=== PATIENT | male | born 1940 | race Caucasian/White ===

== ENCOUNTER 2017-01-02 10:04 | Emergency (ER) | payer MEDICARE, OTHER ==
[~2017-01-02] VITALS: Ht 185.4 cm; Wt 95.0 kg
[~2017-01-02 10:04] MED LIST: ALLO300T2 PO; ASPI1TAB69 PO; COLA100C3 PO; DEPA500T PO; DIVA500T PO; LANTUS2P SQ; LISI40TA PO; MIRT30TA PO; QUET5TAB PO; SERO100T PO
[2017-01-02 10:08] VITALS: BP 144/83; PULSE 104; RESP 20; TEMP 98; O2SAT 94
--- NOTE | 2017-01-02 11:09 | PD ---
HPI Chief Complaint: Skin Problem Time Seen by Provider: 11:01 Travel History International Travel<30 days: No Contact w/Intl Traveler<30days: No Traveled to known affect area: No History of Present Illness HPI Patient is a 76-year-old male presenting to the emergency for evaluation and treatment of scabies. Patient states he went to his stencil maker at [facility] 1 week ago and was given permethrin cream. He states that he cannot reach his back and continues to be itchy. He states that he continues to be itchy. He also reports that has spread to his scrotum and groin. He denies any fevers, drainage. PFSH Past Medical History Arthritis: Yes Asthma: No Autoimmune Disease: No Bipolar Disorder: Yes Anxiety: Yes Depression: Yes Heart Rhythm Problems: No Cancer: No Cardiovascular Problems: No High Cholesterol: Yes Chemotherapy: No Chest Pain: No Congestive Heart Failure: No COPD: No Cerebrovascular Accident: No Diabetes: Yes Diminished Hearing: Yes (HX OF TINITIS) Diverticulitis: Yes Endocrine: Yes Gout: Yes Genitourinary: Yes Headaches: No Hiatal Hernia: No Hypertension: Yes Immune Disorder: No Kidney Stones: Yes Neurologic: Yes (HX OF NEUROPATHY OF LEGS, PT STATES " I USE CANE AT HOME") Psychiatric: Yes (Sees Psychiatrist Dr. Martínez) Respiratory: No Immunizations Current: Yes Migraines: No Pneumonia: Yes (PAST HX X 2) Radiation Therapy: No Seizures: No Sickle Cell Disease: No Sleep Apnea: No Thyroid Disease: No Ulcer: No Past Surgical History Abdominal Surgery: Yes (HX OF BOWEL RESECTION RELATED TO DIVERTICULITIS) AICD: No Appendectomy: Yes Arteriovenous Shunt: No Cardiac Surgery: No Ear Surgery: No Endocrine Surgery: No Eye Surgery: No Gynecologic Surgery: No Insulin Pump: No Neurologic Surgery: No Pacemaker: No Thoracic Surgery: No Tonsillectomy: Yes Other Surgery: Yes Social History Alcohol Use: No Tobacco Use: No Substance Use: Yes (hx marijuana) Allergies-Medications (Allergen,Severity, Reaction): Coded Allergies: Oxycodone (Verified Allergy, Severe, Nausea/Vomiting, 01/02/17) Codeine (Verified Allergy, Unknown, 01/02/17) Reported Meds & Prescriptions Reported Meds & Active Scripts Active Depakote DR (Divalproex Sodium) 500 Mg Tabdr 1,000 Mg PO BID 14 Days Quetiapine (Quetiapine Fumarate) 50 Mg Tab 50 Mg PO HS 14 Days Mirtazapine 30 Mg Tab 30 Mg PO HS 14 Days Reported Lisinopril 40 Mg Tab Unknown Dose PO DAILY Lantus Inj (Insulin Glargine) 1,000 Unit/10 Ml Vial Units SQ DAILY sliding scale Colace (Docusate Sodium) 100 Mg Cap 100 Mg PO BID PRN Divalproex DR (Divalproex Sodium) 500 Mg Tabdr 1,000 Mg PO BID Aspirin 81 Mg Tabdr 81 Mg PO DAILY Allopurinol 300 Mg Tab 300 Mg PO HS PRN Seroquel (Quetiapine Fumarate) 100 Mg Tab 100 Mg PO HS Mirtazapine 30 Mg Tab 30 Mg PO HS Review of Systems Except as stated in HPI: all other systems reviewed are Neg General / Constitutional: No: Fever, Chills Skin: Positive Rash, Positive Itching, Positive Lesions Physical Exam Narrative GENERAL: Well-nourished, well-developed patient. SKIN: Warm and dry. Scattered macular lesions, some with excoriations. Lesions are on abdomen, chest wall, back, arms, groin. Surrounding induration or erythema. HEAD: Normocephalic. EYES: No scleral icterus. No injection or drainage. NECK: Supple, trachea midline. No JVD or lymphadenopathy. CARDIOVASCULAR: Regular rate and rhythm without murmurs, gallops, or rubs. RESPIRATORY: Breath sounds equal bilaterally. No accessory muscle use. GASTROINTESTINAL: Abdomen soft, non-tender, nondistended. MUSCULOSKELETAL: No cyanosis, or edema. BACK: Nontender without obvious deformity. No CVA tenderness. Data Data Last Documented VS Vital Signs Date Time Temp Pulse Resp B/P Pulse Ox O2 Delivery O2 Flow Rate FiO2 01/02/17 10:08 98.0 104 20 144/83 94 Room Air [facility] Medical Decision Making Medical Screen Exam Complete: Yes Emergency Medical Condition: Yes Interpretation(s) Vital Signs Date Time Temp Pulse Resp B/P Pulse Ox O2 Delivery O2 Flow Rate FiO2 01/02/17 10:08 98.0 104 20 144/83 94 Room Air Differential Diagnosis Folliculitis versus dermatitis versus scabies versus eczema versus other Narrative Course Patient is a 76-year-old male presenting to emergency for evaluation of scabies. Patient was diagnosed a week ago by his stencil maker, he states he was unable to effectively treat himself due to being unable to reach his back. Patient did not call his stencil maker, he stated that he thought they were closed because of the holiday. Patient has significant disease, he will be given a prescription for ivermectin for 2 days. Additional treatment will be provided by his charter coach driver if needed upon reevaluation. Patient is encouraged to schedule a follow-up appointment with his stencil maker for further evaluation and management. Patient has topical cream at home which she states has helped some of the itching. He was encouraged to continue using this as directed. Patient was advised to come back to the emergency department for any new or worsening symptoms. Patient is stable for discharge. Diagnosis Primary Impression: Crusted scabies Referrals: [employer] 2 days Patient Instructions: General Instructions, Scabies (ED) Additional Instructions: Follow-up with your stencil maker in one to 2 days Take medications as directed Continue to use topical cream for itching as directed Return to the emergency department for any new or worsening symptoms Med/Other Pt SpecificInfo: Prescription(s) given Scripts Ivermectin 3 Mg Tab6 Tab PO DAILY #2 Ref 0 Prov:Eusebia Jenkins 01/02/17 Eusebia Jenkins Jan 02, 2017 11:09
[2017-01-02] MEDS ORDERED: IVER5TAB PO (11:14)
== END 2017-01-02 11:24 | disposition home or self-care (01) ==
LOC: NEPB 10:04
DX: B86 Scabies (principal); I10 Essential (primary) hypertension; F12.90 Cannabis use, unspecified, uncomplicated
CPT/HCPCS: 99282

== ENCOUNTER 2017-01-06 09:15 | Inpatient (IN) | payer MEDICARE, OTHER ==
[2017-01-06] VITALS (10 sets, daily range): BP systolic 158–232; BP diastolic 83–106; PULSE 79–105; RESP 15–20; TEMP 97.3–98; O2SAT 95–99
[~2017-01-06] VITALS: Ht 182.9 cm; Wt 85.0 kg
[~2017-01-06 09:15] MED LIST changes: +IVER5TAB PO
[2017-01-06] MEDS ORDERED: MECLIZINE HCL 25 MG TAB PO ONE (09:45)
[2017-01-06] MEDS: SODIUM CHLOR 0.9% 1000 ML INJ 1,000 ML IV SCH ×2 (09:48→19:45)
--- NOTE | 2017-01-06 09:52 | PD ---
HPI Chief Complaint: GI Complaint Time Seen by Provider: 09:37 Travel History International Travel<30 days: No Contact w/Intl Traveler<30days: No Traveled to known affect area: No History of Present Illness HPI 76-year-old male complains of dizziness, nausea vomiting and suicidal. Patient states that he started having severe dizziness with nausea vomiting since last night. Patient states that the dizziness associated with movement. Patient denies any headache. Patient denies any visual change. Patient denies any neck pain. Patient denies any chest pain or shortness of breath. Patient denies abdominal pain. Patient denies any focal weakness or numbness of extremity. Patient states that he tried to kill himself by cutting his left wrist and left arm with a razor blade last night. Patient denies any history of depression and suicidal in the past. Patient has history of hypertension, diabetes, dyslipidemia. Patient is a nonsmoker. Patient denies any illicit drug abuse or alcohol abuse. Patient states that he took his insulin yesterday but not this morning. Patient states that he did not take his blood pressure medication this morning. PFSH Past Medical History Arthritis: Yes Asthma: No Autoimmune Disease: No Bipolar Disorder: Yes Anxiety: Yes Depression: Yes Heart Rhythm Problems: No Cancer: No Cardiovascular Problems: No High Cholesterol: Yes Chemotherapy: No Chest Pain: No Congestive Heart Failure: No COPD: No Cerebrovascular Accident: No Diabetes: Yes Diminished Hearing: Yes (HX OF TINITIS) Diverticulitis: Yes Endocrine: Yes Gout: Yes Genitourinary: Yes Headaches: No Hiatal Hernia: No Hypertension: Yes Immune Disorder: No Kidney Stones: Yes Neurologic: Yes (HX OF NEUROPATHY OF LEGS, PT STATES " I USE CANE AT HOME") Psychiatric: Yes (Sees Psychiatrist Dr. Martínez) Respiratory: No Immunizations Current: Yes Migraines: No Pneumonia: Yes (PAST HX X 2) Radiation Therapy: No Seizures: No Sickle Cell Disease: No Sleep Apnea: No Thyroid Disease: No Ulcer: No Past Surgical History Abdominal Surgery: Yes (HX OF BOWEL RESECTION RELATED TO DIVERTICULITIS) AICD: No Appendectomy: Yes Arteriovenous Shunt: No Cardiac Surgery: No Ear Surgery: No Endocrine Surgery: No Eye Surgery: No Gynecologic Surgery: No Insulin Pump: No Neurologic Surgery: No Pacemaker: No Thoracic Surgery: No Tonsillectomy: Yes Other Surgery: Yes Social History Alcohol Use: No Tobacco Use: No Substance Use: Yes (hx marijuana) Allergies-Medications (Allergen,Severity, Reaction): Coded Allergies: Oxycodone (Verified Allergy, Severe, Nausea/Vomiting, 01/02/17) Codeine (Verified Allergy, Unknown, 01/02/17) Reported Meds & Prescriptions Reported Meds & Active Scripts Active Depakote DR (Divalproex Sodium) 500 Mg Tabdr 1,000 Mg PO BID 14 Days Quetiapine (Quetiapine Fumarate) 50 Mg Tab 50 Mg PO HS 14 Days Mirtazapine 30 Mg Tab 30 Mg PO HS 14 Days Reported Doxycycline (Doxycycline (Monohydrate)) 100 Mg Cap 100 Mg PO BID Permethrin Topical (Permethrin) 5% Cream 1 Applic TOPICAL ONCE Lantus Solostar Pen Inj (Insulin Glargine) 300 Unit/3 Ml Pen 25-30 Units SQ DAILY Lisinopril 40 Mg Tab Unknown Dose PO HS Colace (Docusate Sodium) 100 Mg Cap 100 Mg PO TID PRN Aspirin 81 Mg Tabdr 81 Mg PO HS Allopurinol 300 Mg Tab 150 Mg PO HS PRN Review of Systems General / Constitutional: No: Fever Eyes: No: Visual changes HENT: Positive: Lightheadedness, No: Headaches Cardiovascular: No: Chest Pain or Discomfort Respiratory: No: Shortness of Breath Gastrointestinal: Positive: Nausea, Vomiting, No: Abdominal Pain Genitourinary: No: Dysuria Musculoskeletal: No: Pain Skin: No Rash Neurologic: No: Weakness Psychiatric: No: Depression Endocrine: No: Polydipsia Hematologic/Lymphatic: No: Easy Bruising Physical Exam Narrative GENERAL: Well-nourished, well-developed patient. SKIN: Warm and dry. HEAD: Normocephalic. EYES: No scleral icterus. No injection or drainage. NECK: Supple, trachea midline. No JVD or lymphadenopathy. CARDIOVASCULAR: Regular rate and rhythm without murmurs, gallops, or rubs. RESPIRATORY: Breath sounds equal bilaterally. No accessory muscle use. GASTROINTESTINAL: Abdomen soft, non-tender, nondistended. MUSCULOSKELETAL: No cyanosis, or edema. Patient had multiple longitudinal abrasions the left forearm and left wrist. BACK: Nontender without obvious deformity. No CVA tenderness. Neurologic exam normal. Data Data Last Documented VS Vital Signs Date Time Temp Pulse Resp B/P Pulse Ox O2 Delivery O2 Flow Rate FiO2 01/06/17 10:00 84 15 205/106 95 Room Air 01/06/17 09:35 98.0 Orders Electrocardiogram (01/06/17 09:37) Complete Blood Count With Diff (01/06/17 09:37) Comprehensive Metabolic Panel (01/06/17 09:37) Prothrombin Time / Inr (Pt) (01/06/17 09:37) Act Partial Throm Time (Ptt) (01/06/17 09:37) Urinalysis - C+S If Indicated (01/06/17 09:37) Chest, Single Ap (01/06/17 09:37) Ct Brain W/O Iv Contrast(Rout) (01/06/17 09:37) Iv Access Insert/Monitor (01/06/17 09:37) Ecg Monitoring (01/06/17 09:37) Oximetry (01/06/17 09:37) Drug Screen, Random Urine (01/06/17 09:37) Alcohol (Ethanol) (01/06/17 09:37) Psych Screen (01/06/17 09:37) Sodium Chlor 0.9% 1000 Ml Inj (Ns 1000 M (01/06/17 09:45) Meclizine (Antivert) (01/06/17 09:45) Insulin Human Regular Inj (Novolin R Inj (01/06/17 11:30) Labs Laboratory Tests Test 01/06/17 01/06/17 09:42 10:30 White Blood Count 11.9 TH/MM3 Red Blood Count 5.36 MIL/MM3 Hemoglobin 16.6 GM/DL Hematocrit 49.5 % Mean Corpuscular Volume 92.4 FL Mean Corpuscular Hemoglobin 30.9 PG Mean Corpuscular Hemoglobin 33.5 % Concent Red Cell Distribution Width 14.2 % Platelet Count 259 TH/MM3 Mean Platelet Volume 10.8 FL Neutrophils (%) (Auto) 89.2 % Lymphocytes (%) (Auto) 6.1 % Monocytes (%) (Auto) 4.5 % Eosinophils (%) (Auto) 0.0 % Basophils (%) (Auto) 0.2 % Neutrophils # (Auto) 10.6 TH/MM3 Lymphocytes # (Auto) 0.7 TH/MM3 Monocytes # (Auto) 0.5 TH/MM3 Eosinophils # (Auto) 0.0 TH/MM3 Basophils # (Auto) 0.0 TH/MM3 CBC Comment DIFF FINAL Differential Comment Prothrombin Time 12.6 SEC Prothromb Time International 1.1 RATIO Ratio Activated Partial 27.8 SEC Thromboplast Time Sodium Level 136 MEQ/L Potassium Level 5.2 MEQ/L Chloride Level 103 MEQ/L Carbon Dioxide Level 17.7 MEQ/L Anion Gap 15 MEQ/L Blood Urea Nitrogen 18 MG/DL Creatinine 1.35 MG/DL Estimat Glomerular Filtration 52 ML/MIN Rate Random Glucose 323 MG/DL Calcium Level 8.6 MG/DL Total Bilirubin 0.4 MG/DL Aspartate Amino Transf 29 U/L (AST/SGOT) Alanine Aminotransferase 24 U/L (ALT/SGPT) Alkaline Phosphatase 107 U/L Total Protein 8.0 GM/DL Albumin 3.5 GM/DL Ethyl Alcohol Level LESS THAN 3 MG/DL Urine Color YELLOW Urine Turbidity CLEAR Urine pH 5.0 Urine Specific [place] 1.034 Urine Protein 30 mg/dL Urine Glucose (UA) 1000 mg/dL Urine Ketones 40 mg/dL Urine Occult Blood NEG Urine Nitrite NEG Urine Bilirubin NEG Urine Urobilinogen LESS THAN 2.0 MG/DL Urine Leukocyte Esterase NEG Urine RBC 2 /hpf Urine WBC 2 /hpf Urine Squamous Epithelial 1 /hpf Cells Microscopic Urinalysis Comment CULT NOT INDICATED Urine Opiates Screen NEG Urine Barbiturates Screen NEG Urine Amphetamines Screen NEG Urine Benzodiazepines Screen NEG Urine Cocaine Screen NEG Urine Cannabinoids Screen NEG MDM Medical Decision Making Medical Screen Exam Complete: Yes Emergency Medical Condition: Yes Interpretation(s) 11:16 AM. Last Impressions Chest X-Ray 01/06/17 0937 Signed Impressions: Service Date/Time: Friday, January 06, 2017 09:36 - CONCLUSION: No acute disease. No significant change has occurred. Abdirizak Troncoso MD 11:16 AM. CBC WBC 11.9. 89 neutrophil. Potassium 5.2. Slight hemolysis noted. Creatinine 1.35. Glucose 323. Urine drug screen negative. Alcohol negative. UA is negative. Differential Diagnosis Differential diagnosis including acute vertigo, electrolyte abdomen mildly, dehydration, hyperglycemia, DKA, intracranial pathology, suicidal attempts. Narrative Course 76-year-old male with dizziness with head movement, nausea vomiting, suicidal attempts. Meclizine 25 mg by mouth given. Normal saline solution 100 cc an hour. Patient was given Zofran IV per EMS. Novolin R, 5 units subcutaneous given. 11:27 AM. Patient is medically cleared for psychiatric evaluation and disposition. Diagnosis Primary Impression: Acute onset of severe vertigo Additional Impression: Hyperglycemia Tal Bearden MD Jan 06, 2017 09:52
[2017-01-06 09:55] LABS: AUTOMATED NEUTROPHIL # 10.6 TH/MM3 (1.8-7.7); BASOPHIL % 0.2 % (0.0-2.0); HEMATOCRIT 49.5 % (39.0-51.0); HEMO FLAGS DIFF FINAL; LYMPH % 6.1 % (9.0-44.0); LYMPHOCYTE # 0.7 TH/MM3 (1.0-4.8); MEAN CELL VOLUME 92.4 FL (80.0-100.0); MEAN CORPUSCULAR HEMOGLOBIN 30.9 PG (27.0-34.0); MEAN CORPUSCULAR HGB CONC 33.5 % (32.0-36.0); MONO % 4.5 % (0.0-8.0); NEUT % 89.2 % (16.0-70.0); PLATELET COUNT 259 TH/MM3 (150-450); RED BLOOD COUNT 5.36 MIL/MM3 (4.50-5.90); RED CELL DISTRIBUTION WIDTH 14.2 % (11.6-17.2); WHITE BLOOD COUNT 11.9 TH/MM3 (4.0-11.0)
--- NOTE | 2017-01-06 09:55 | RADRPT ---
EXAM DATE/TIME: 01/06/2017 09:36 [facility] COMPARISON: CHEST SINGLE AP, May 15, 2016, 2:35. INDICATIONS : Shortness of breath. MEDICAL HISTORY : None. SURGICAL HISTORY : None. ENCOUNTER: Initial ACUITY: 1 day PAIN SCORE: 0/10 LOCATION: Bilateral chest FINDINGS: A single view of the chest demonstrates the lungs to be symmetrically aerated without evidence of mas s, infiltrate or effusion. The cardiomediastinal contours are unremarkable. Osseous structures are intact. CONCLUSION: No acute disease. No significant change has occurred. Abdirizak Troncoso MD on January 06, 2017 at 9:54 Board Certified Radiologist. This report was verified electronically.
[2017-01-06 10:01] LABS: INTERNATIONAL NORMALIZED RATIO 1.1 RATIO; PROTHROMBIN TIME - PATIENT 12.6 SEC (9.8-11.6)
[2017-01-06 10:02] LABS: APTT (PATIENT) 27.8 SEC (24.3-30.1)
[2017-01-06 10:22] LABS: ALKALINE PHOSPHATASE 107 U/L (45-117); ALT (GPT) 24 U/L (12-78); ANION GAP 15 MEQ/L (5-15); AST (GOT) 29 U/L (15-37); BICARBONATE 17.7 MEQ/L (21.0-32.0); BLOOD UREA NITROGEN 18 MG/DL (7-18); CHLORIDE 103 MEQ/L (98-107); GLOMERULAR FILTRATION RATE 52 ML/MIN (>89); SODIUM (NA) 136 MEQ/L (136-145); TOTAL BILIRUBIN ADULT 0.4 MG/DL (0.2-1.0)
[2017-01-06 10:23] LABS: POTASSIUM 5.2 MEQ/L (3.5-5.1)
[2017-01-06 11:08] LABS: BLOOD, URINE NEG (NEG); COMMENT (UR) CULT NOT INDICATED; CULTURE IF INDICATED CULT NOT INDICATED; GLUCOSE,URINE 1000 mg/dL (NEG); KETONE, URINE 40 mg/dL (NEG); NITRITE,URINE NEG (NEG); SQUAMOUS EPITHELIAL CELL URINE 1 /hpf (0-5); URINE COLOR YELLOW (YELLW/STRAW)
[2017-01-06 11:10] LABS: AMPHETAMINE, URINE NEG (NEG); BARBITURATES, URINE NEG (NEG); COCAINE, URINE NEG (NEG)
--- NOTE | 2017-01-06 11:14 | RADRPT ---
EXAM DATE/TIME: 01/06/2017 10:51 [facility] COMPARISON: CT BRAIN W/O CONTRAST, April 11, 2015, 10:13. INDICATIONS : Nausea and vomiting for two days. RADIATION DOSE: 56.35 CTDIvol (mGy) MEDICAL HISTORY : Hypertension. Renal failure, chronic. Diabetes mellitus type 2. SURGICAL HISTORY : None. ENCOUNTER: Initial ACUITY: 1 day PAIN SCALE: 0/10 LOCATION: cranial TECHNIQUE: Multiple contiguous axial images were obtained of the head. Using automated exposure control and adjustment of the mA and/or kV according to patient size, radiation dose was kept as low as reasonably achievable to obtain optimal diagnostic quality images. FINDINGS: There is marked central and cortical atrophy with dilatation of ventricular and sulcal spaces. There is no parenchymal hemorrhage, acute infarction or mass lesion identified. There are no extra-a xial fluid collections appreciated. The posterior fossa is unremarkable with midline fourth ventricl e. The portion of the orbits and paranasal sinuses visualized are unremarkable. CONCLUSION: Atrophy otherwise negative. Emmett Salas MD FACR on January 06, 2017 at 11:12 Board Certified Radiologist. This report was verified electronically.
[2017-01-06] MEDS ORDERED: LANTINJ SQ (11:19)
[2017-01-06] MEDS ORDERED: PERM5CRE TOPICAL (11:21)
[2017-01-06] MEDS ORDERED: DOXY1CAP91 PO (11:23)
[2017-01-06] MEDS ORDERED: INSULIN HUMAN REGULAR 1,000 UNITS/10 ML VIAL SQ ONE (11:30)
[2017-01-06] MEDS ORDERED: hydrALAZINE HCL 20 MG/ML VIAL IV PUSH ONE (12:00)
--- NOTE | 2017-01-06 17:28 | EKG ---
Date Performed: 01/06/2017 Time Performed: 09:48:59 PTAGE: 76 years EKG: Sinus rhythm INDETERMINATE AXIS RIGHT BUNDLE BRANCH BLOCK ST DEVIATION AND MODERATE T-WAVE ABNORMALITY, CONSIDER ANTEROLATERAL ISCHEMIA ABNORMAL ECG PREVIOUS TRACING : 05/15/2016 03.45 Since previous tracing, no significant change noted DOCTOR: Lori Cortez Interpretating Date/Time 01/06/2017 17:23:59
--- NOTE | 2017-01-06 17:52 | PD ---
History of Present Illness Chief Complaint: Psychiatric Symptoms Time Seen by Provider: 17:15 Travel History International Travel<30 Days: No Contact w/Intl Traveler<30days: No Known affected area: No Legal Status Legal Status: Voluntary History of Present Illness: History of Present Illness 76-year-old , , male with history of bipolar disorder who comes in to Ed complaining of dizziness, nausea and vomiting. He also reported feeling suicidal. Patient reports that he has been feeling stressed and " too much on my plate lately. I went to the ID and the psychiatrist said I was depressed but did not change my medication".He reports he was dx with a rash last week and he has been unable to have his apartment fumigated so he is not able ot get the infestation under control. He calls it herpes but it is actually scabies and he has received treatment for this. He also reports feeling upset as his ex just got a new boyfriend and is demanding him pay her alimony. He moved out of an HALFWAY 2 months ago and is being sued for $ 5,000 he owes them. He was unable to sleep last night due to newly onset of nausea and vomiting and attempted to kill himself by superficially cutting his wrists . He states " This is a cry for help. 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 I am [place] educated and I know that males usually use more lethal methods but I can't get a gun because I have been BA too many times before". Patient is also verbalizing feeling ashamed of having contracted scabies. Patient is alert,oriented male dressed in hospital attire. Speech is clear and logical. There is no hallucinations, delusions or paranoia. Mood is depressed with hopelessness, poor coping. He denies current suicidal ideation but in the same sentence talks about him being a " high risk due to many factors". He tells me he is worried over his cat but also states that he spread a 2 lb of food in his apartment before he left so that the cat could have some food. As per EMR review this patient was last hospitalized in April 2015 for depression. He had a total of 3 hospitalizations in 2015. His first psychiatric hospitalization was in 2013 and he was dx with bipolar disorder. One documented suicide attempt by overdosing on Depakote. PFSH Past Medical History Arthritis: Yes Asthma: No Autoimmune Disease: No Bipolar Disorder: Yes Anxiety: Yes Depression: Yes Heart Rhythm Problems: No Cancer: No Cardiovascular Problems: No High Cholesterol: Yes Chemotherapy: No Chest Pain: No Congestive Heart Failure: No COPD: No Cerebrovascular Accident: No Diabetes: Yes Diminished Hearing: Yes (HX OF TINITIS) Diverticulitis: Yes Endocrine: Yes Gout: Yes Genitourinary: Yes Headaches: No Hiatal Hernia: No Hypertension: Yes Immune Disorder: No Kidney Stones: Yes Neurologic: Yes (HX OF NEUROPATHY OF LEGS, PT STATES " I USE CANE AT HOME") Psychiatric: Yes (Sees Psychiatrist Dr. Martínez) Respiratory: No Immunizations Current: Yes Migraines: No Pneumonia: Yes (PAST HX X 2) Radiation Therapy: No Seizures: No Sickle Cell Disease: No Sleep Apnea: No Thyroid Disease: No Ulcer: No Past Surgical History Abdominal Surgery: Yes (HX OF BOWEL RESECTION RELATED TO DIVERTICULITIS) AICD: No Appendectomy: Yes Arteriovenous Shunt: No Cardiac Surgery: No Ear Surgery: No Endocrine Surgery: No Eye Surgery: No Gynecologic Surgery: No Insulin Pump: No Neurologic Surgery: No Pacemaker: No Thoracic Surgery: No Tonsillectomy: Yes Other Surgery: Yes Psychiatric History Psychiatric History Hx Psychiatric Treatment: Per psych screen pt has been treated for bipolar, ocd, ptsd, depression Currently followed by ID clinic History of Inpatient Treatment: Yes Guns or firearms in home: No Social History x 2 years. Lives alone with his cat. retired high school learning support teacher. Moved into his own apartment 2 months ago after 14 months in an HALFWAY. Hx Alcohol Use: No Hx Tobacco Use: No Hx Substance Use: Yes (hx marijuana) Substance Use Type: Alcohol, Marijuana (negative toxicology) Hx of Substance Use Treatment: No Family Psychiatric History Mother completed suicide when patient was 11 years old Allergies-Medications (Allergen,Severity, Reaction): Coded Allergies: Oxycodone (Verified Allergy, Severe, Nausea/Vomiting, 01/02/17) Codeine (Verified Allergy, Unknown, 01/02/17) Reported Meds & Prescriptions Reported Meds & Active Scripts Active Depakote DR (Divalproex Sodium) 500 Mg Tabdr 1,000 Mg PO BID 14 Days Quetiapine (Quetiapine Fumarate) 50 Mg Tab 50 Mg PO HS 14 Days Mirtazapine 30 Mg Tab 30 Mg PO HS 14 Days Reported Doxycycline (Doxycycline (Monohydrate)) 100 Mg Cap 100 Mg PO BID Permethrin Topical (Permethrin) 5% Cream 1 Applic TOPICAL ONCE Lantus Solostar Pen Inj (Insulin Glargine) 300 Unit/3 Ml Pen 25-30 Units SQ DAILY Lisinopril 40 Mg Tab Unknown Dose PO HS Colace (Docusate Sodium) 100 Mg Cap 100 Mg PO TID PRN Aspirin 81 Mg Tabdr 81 Mg PO HS Allopurinol 300 Mg Tab 150 Mg PO HS PRN Review of Systems Constitutional: COMPLAINS OF: Change in appetite Endocrine: DENIES: Heat/cold intolerance, Polydipsia, Polyuria, Polyphagia Eyes: DENIES: Blurred vision, Diplopia, Eye inflammation, Eye pain, Vision loss , Photosensitivity, Double Vision Ears, nose, mouth, throat: COMPLAINS OF: Tinnitus Respiratory: DENIES: Apneas, Cough, Snoring, Wheezing, Hemoptysis, Sputum production, Shortness of breath Cardiovascular: DENIES: Chest pain, Palpitations, Syncope, Dyspnea on Exertion , PND, Lower Extremity Edema, Orthopnea, Claudication Gastrointestinal: COMPLAINS OF: Nausea Genitourinary: DENIES: Sexual dysfunction, Urinary frequency, Urinary incontinence, Urgency, Hematuria, Dysuria, Nocturia, Penile Discharge, Testicular Pain, Testicular Swelling Musculoskeletal: DENIES: Joint pain, Muscle aches, Stiffness, Joint Swelling, Back pain, Neck pain Integumentary: COMPLAINS OF: Pruritus, Rash (had scabies one week ago. Has been treated in Ed. ) Hematologic/lymphatic: DENIES: Bruising, Lymphadenopathy Immunologic/allergic: COMPLAINS OF: Urticaria Neurologic: COMPLAINS OF: Poor Balance Psychiatric: COMPLAINS OF: Depression, Suicidal Ideation Exam Alert: Yes [place]: Person (ox4) Mood: Depressed Affect: Blunted Speech: Clear, Logical Eye Contact: Normal Memory Intact: Comment (no gross abnormality) Hallucinations: Other (negative) Delusions: No Suicidal: Ideation (shoot himself) Homicidal: Ideation (deneis) Insight/Judgement fair. poor MDM Medical Decision Making Medical Record Reviewed: Yes Assessment/Plan 76 year old male initially seen on a voluntary basis with reports of increase in symptoms of depression related to divorce of 2 years, recent move to his own apartment after 14 months in an HALFWAY, recent dx w scabies, who reports not coping and superficially cutting his left wrist in a suicide gesture. Patient with previous suicide attempt by overdosing. Patient with no support system at this time and I feel he is a potential risk to self if he is discharged from the Ed. I am recommending admission for further evaluation, medication adjustment and to maintain safety. I will place him under a BA at this time. Orders Electrocardiogram (01/06/17 09:37) Complete Blood Count With Diff (01/06/17 09:37) Comprehensive Metabolic Panel (01/06/17 09:37) Prothrombin Time / Inr (Pt) (01/06/17 09:37) Act Partial Throm Time (Ptt) (01/06/17 09:37) Urinalysis - C+S If Indicated (01/06/17 09:37) Chest, Single Ap (01/06/17 09:37) Ct Brain W/O Iv Contrast(Rout) (01/06/17 09:37) Iv Access Insert/Monitor (01/06/17 09:37) Ecg Monitoring (01/06/17 09:37) Oximetry (01/06/17 09:37) Drug Screen, Random Urine (01/06/17 09:37) Alcohol (Ethanol) (01/06/17 09:37) Psych Screen (01/06/17 09:37) Sodium Chlor 0.9% 1000 Ml Inj (Ns 1000 M (01/06/17 09:45) Meclizine (Antivert) (01/06/17 09:45) Insulin Human Regular Inj (Novolin R Inj (01/06/17 11:30) Hydralazine Inj (Apresoline Inj) (01/06/17 12:00) Diet Diabetic (01/06/17 Lunch) Results Vital Signs Date Time Temp Pulse Resp B/P Pulse Ox O2 Delivery O2 Flow Rate FiO2 01/06/17 16:18 97.4 105 20 176/83 98 Room Air 01/06/17 14:34 90 16 172/88 98 Room Air 01/06/17 13:23 86 16 180/86 99 Room Air 01/06/17 12:29 79 16 193/90 99 Room Air 01/06/17 11:30 80 16 232/100 98 Room Air 01/06/17 10:00 84 15 205/106 95 Room Air 01/06/17 09:42 16 99 Room Air 01/06/17 09:42 16 01/06/17 09:35 98.0 91 16 222/105 98 Room Air Laboratory Tests Test 01/06/17 01/06/17 09:42 10:30 White Blood Count 11.9 Red Blood Count 5.36 Hemoglobin 16.6 Hematocrit 49.5 Mean Corpuscular Volume 92.4 Mean Corpuscular Hemoglobin 30.9 Mean Corpuscular Hemoglobin 33.5 Concent Red Cell Distribution Width 14.2 Platelet Count 259 Mean Platelet Volume 10.8 Neutrophils (%) (Auto) 89.2 Lymphocytes (%) (Auto) 6.1 Monocytes (%) (Auto) 4.5 Eosinophils (%) (Auto) 0.0 Basophils (%) (Auto) 0.2 Neutrophils # (Auto) 10.6 Lymphocytes # (Auto) 0.7 Monocytes # (Auto) 0.5 Eosinophils # (Auto) 0.0 Basophils # (Auto) 0.0 CBC Comment DIFF FINAL Differential Comment Prothrombin Time 12.6 Prothromb Time International 1.1 Ratio Activated Partial 27.8 Thromboplast Time Sodium Level 136 Potassium Level 5.2 Chloride Level 103 Carbon Dioxide Level 17.7 Anion Gap 15 Blood Urea Nitrogen 18 Creatinine 1.35 Estimat Glomerular Filtration 52 Rate Random Glucose 323 Calcium Level 8.6 Total Bilirubin 0.4 Aspartate Amino Transf 29 (AST/SGOT) Alanine Aminotransferase 24 (ALT/SGPT) Alkaline Phosphatase 107 Total Protein 8.0 Albumin 3.5 Ethyl Alcohol Level LESS THAN 3 Urine Color YELLOW Urine Turbidity CLEAR Urine pH 5.0 Urine Specific [place] 1.034 Urine Protein 30 Urine Glucose (UA) 1000 Urine Ketones 40 Urine Occult Blood NEG Urine Nitrite NEG Urine Bilirubin NEG Urine Urobilinogen LESS THAN 2.0 Urine Leukocyte Esterase NEG Urine RBC 2 Urine WBC 2 Urine Squamous Epithelial 1 Cells Microscopic Urinalysis Comment CULT NOT INDICATED Urine Opiates Screen NEG Urine Barbiturates Screen NEG Urine Amphetamines Screen NEG Urine Benzodiazepines Screen NEG Urine Cocaine Screen NEG Urine Cannabinoids Screen NEG Diagnosis Primary Impression: Acute onset of severe vertigo Additional Impression: Bipolar disorder Admitting Information Admitting Physician Requests: Admit (Dr. Ford) Problem Qualifiers Additional Impression: Bipolar disorder Qualified Code: F31.4 - Bipolar disorder, current episode depressed, severe, without psychotic features Robina Fay Jan 06, 2017 17:52
[2017-01-06] MEDS ORDERED: MAGNESIUM HYDROXIDE SUSP 30 ML CUP PO PRN (18:45)
[2017-01-06] MEDS ORDERED: ALUMINUM/MAGNESIUM/SIMETH 30 ML CUP PO PRN (18:45)
[2017-01-06] MEDS ORDERED: ACETAMINOPHEN 325 MG TAB PO PRN (18:45)
[2017-01-06] MEDS: ASPIRIN EC 81 MG TABEC PO SCH (21:15)
[2017-01-06] MEDS: MIRTAZAPINE 15 MG TAB PO SCH (21:15)
[2017-01-06] MEDS: QUEtiapine FUMARATE 25 MG TAB PO SCH (21:15)
[2017-01-06] MEDS: diphenhydrAMINE HCL 50 MG CAP PO PRN (21:15)
[2017-01-07 01:00] VITALS: BP 160/83; PULSE 101; RESP 18; TEMP 97.8; O2SAT 97
[2017-01-07] MEDS: SODIUM CHLOR 0.9% 1000 ML INJ 1,000 ML IV SCH ×2 (05:45→15:45)
[2017-01-07 06:42] VITALS: BP 162/82; PULSE 94; RESP 19; TEMP 97.9; O2SAT 98
[2017-01-07 07:49] LABS: ANION GAP 15 MEQ/L (5-15); BICARBONATE 17.5 MEQ/L (21.0-32.0); BLOOD UREA NITROGEN 20 MG/DL (7-18); CHLORIDE 107 MEQ/L (98-107); GLOMERULAR FILTRATION RATE 59 ML/MIN (>89); HDL CHOLESTEROL 69.9 MG/DL (40.0-60.0); LDL CHOLESTEROL 171 MG/DL (0-99); POTASSIUM 4.3 MEQ/L (3.5-5.1); SODIUM (NA) 139 MEQ/L (136-145)
[2017-01-07] MEDS: cloNIDine HCL 0.1 MG TAB PO SCH ×2 (09:27→21:46)
[2017-01-07 10:31] VITALS: BP 125/78; PULSE 96; RESP 18
--- NOTE | 2017-01-07 13:08 | HHI.HP ---
Provisional Diagnosis Admission Date Jan 06, 2017 at 18:44 Catarina I. Major depressive disorder, recurrent, without psychosis vs bipolar disorder, depressive type Catarina II. R/O personality disorder, cluster B traits Catarina III. Diabetes mellitus Catarina IV. Lack of social and family support Catarina V. 45 Certification of Person's Competence To Provide Express and Informed Consent I have personally examined Kenroy Ward , a person being served at [facility] on, Jan 07, 2017 13:07. Express and informed consent means consent voluntarily given in writing, by a competent person, after sufficient explanation and disclosure of the subject matter involved to enable the person to make a knowing and willful decision without any element of force, fraud, deceit, duress, or other form of constraint or coercion. This person is 18 years of age or older, is not now known to be incompetent to consent to treatment with a guardian advocate, and does not have a health care surrogate or proxy currently making medical treatment decisions. I have found this person to be one of the following: [] Competent to provide express and informed consent, as defined above, for voluntary admission to this facility and is competent to provide express and informed consent for treatment. He/she has the consistent capacity to make well reasoned, willful, and knowing decisions concerning his or her medical or mental health treatment. The person fully and consistently understands the purpose of the admission for examination/placement and is fully capable of personally exercising all rights assured under [place] [] Incompetent to provide express and informed consent to voluntary admission, and this is incompetent to provide express and informed consent to treatment. The person must be transferred to involuntary status and a petition for a guardian advocate filed with the Circuit Court. [X] Refusing to provide express and informed consent to voluntary admission but is competent to provide express and informed consent for treatment. The person must be discharged or transferred to involuntary status. Form shall be completed within 24 hours of a person's arrival at the receiving facility and filed in the clinical record of each person: 1. Admitted on a voluntary basis 2. Permitted to provide express and informed consent to his/her own treatment 3. Allowed to transfer from involuntary to voluntary status 4. Prior to permitting a person to consent to his or her own treatment after having been previously found incompetent to consent to treatment. History of Present Illness Capacity: Has Capacity HPI as per ER. Miss Fay documentation on 01/06/2017: "76-year-old , , male with history of bipolar disorder who comes in to Ed complaining of dizziness, nausea and vomiting. He also reported feeling suicidal. Patient reports that he has been feeling stressed and " too much on my plate lately. [facility] said I was depressed but did not change my medication".He reports he was dx with a rash last week and he has been unable to have his apartment fumigated so he is not able ot get the infestation under control. He calls it herpes but it is actually scabies and he has received treatment for this. He also reports feeling upset as his ex just got a new boyfriend and is demanding him pay her alimony. He moved out of an INTERMEDIATE 2 months ago and is being sued for $ 5,000 he owes them. He was unable to sleep last night due to newly onset of nausea and vomiting and attempted to kill himself by superficially cutting his wrists . He states " This is a cry for help. 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 I am [place] educated and I know that males usually use more lethal methods but I can't get a gun because I have been BA too many times before". Patient is also verbalizing feeling ashamed of having contracted scabies. Patient is alert, oriented male dressed in hospital attire. Speech is clear and logical. There is no hallucinations, delusions or paranoia. Mood is depressed with hopelessness, poor coping. He denies current suicidal ideation but in the same sentence talks about him being a " high risk due to many factors". He tells me he is worried over his cat but also states that he spread a 2 lb of food in his apartment before he left so that the cat could have some food.As per EMR review this patient was last hospitalized in April 2015 for depression. He had a total of 3 hospitalizations in 2014. His first psychiatric hospitalization was in 2013 and he was dx with bipolar disorder. One documented suicide attempt by overdosing on Depakote." 01/07/2017: The patient is a 76-year-old man, domiciled alone in [place], divorce, , retired, with psychiatric history of depression , bipolar disorder, previous psychiatric hospitalizations, his last hospitalization was here at [place] in 2015 after an overdose of Depakote, EMR reviewed, previous suicidal attempts, he is connected to the [place] psychiatric service, not in medication at this moment, medical history of diabetes mellitus , who came to the ER complaining of dizziness, nausea and vomiting, but also reported feeling suicidal. Patient has visible superficial self inflicted lacerations in his left wrist done recently with the purpose of "release in my stress". On psychiatric evaluation today patient states that he has been very depressed in the last week since he went to his education associate that he was told he had scabies. He said that he felt extremely degraded and offended by this diagnosis, became very depressed "like my whole world was falling down and self inflicted this lacerations". He also explained that he has been in a court process because he sued his [employer]IN and last week the court favored his INTERMEDIATE. After this patient has been feeling very depressed, with very low appetite, low energy , he hasn't been eating, he says that he has lost many pounds, and has been having frequently suicidal thoughts, but no plan or intention. At this moment the patient denies suicidal ideation, denies homicidal ideation, denies visual and auditory hallucinations. Patient is fully oriented 3, no fluctuation of consciousness, no attention deficit, no gross cognitive impairment observed. He does not present any paranoia, delusions, disorganized behaviors or thought during this evaluation. Patient denies the use of alcohol and illicit drugs. Review of Systems Constitutional: DENIES: Diaphoretic episodes, Fatigue, Fever, Weight gain, Weight loss, Chills, Dizziness, Change in appetite, Night Sweats Endocrine: DENIES: Heat/cold intolerance, Polydipsia, Polyuria, Polyphagia Eyes: DENIES: Blurred vision, Diplopia, Eye inflammation, Eye pain, Vision loss , Photosensitivity, Double Vision Ears, nose, mouth, throat: DENIES: Tinnitus, Hearing loss, Vertigo, Nasal discharge, Oral lesions, Throat pain, Hoarseness, Ear Pain, Running Nose, Epistaxis, Sinus Pain, Toothache, Odynophagia Respiratory: DENIES: Apneas, Cough, Snoring, Wheezing, Hemoptysis, Sputum production, Shortness of breath Cardiovascular: DENIES: Chest pain, Palpitations, Syncope, Dyspnea on Exertion , PND, Lower Extremity Edema, Orthopnea, Claudication Gastrointestinal: DENIES: Abdominal pain, Black stools, Bloody stools, Constipation, Diarrhea, Nausea, Vomiting, Difficulty Swallowing, Anorexia Musculoskeletal: DENIES: Joint pain, Muscle aches, Stiffness, Joint Swelling, Back pain, Neck pain Integumentary: DENIES: Abnormal pigmentation, Nail changes, Pruritus, Rash Hematologic/lymphatic: DENIES: Bruising, Lymphadenopathy Immunologic/allergic: DENIES: Eczema, Urticaria Neurologic: DENIES: Abnormal gait, Headache, Localized weakness, Paresthesias, Seizures, Speech Problems, Tremor, Poor Balance Psychiatric: COMPLAINS OF: Depression, DENIES: Anxiety, Confusion, Mood changes, Hallucinations, Agitation, Suicidal Ideation, Homicidal Ideation, Delusions Past Psych History Violence risk - self (6 mos) Elevated Substance Abuse History Drugs/Alcohol past 12 months He denies Past Family Social History Coded Allergies: Oxycodone (Verified Allergy, Severe, Nausea/Vomiting, 01/02/17) Codeine (Verified Allergy, Unknown, 01/02/17) Active Scripts Divalproex (Depakote )500 Mg Tabdr1,000 Mg PO BID 14 Days Ref 0 Prov:Emma Mays 11/07/16 Quetiapine 50 Mg Tab50 Mg PO HS 14 Days Ref 0 Prov:Emma Mays 11/07/16 Mirtazapine 30 Mg Tab30 Mg PO HS 14 Days Ref 0 Prov:Emma Mays 11/07/16 Reported Medications Doxycycline (Monohydrate) (Doxycycline)100 Mg [id number] Mg PO BID 01/06/17 Permethrin Topical 5% Cream1 Applic TOPICAL ONCE #1 TUBE Ref 0 01/06/17 Insulin Glargine Inj (Lantus Solostar Pen Inj)300 Unit/3 Ml [id number] Units SQ DAILY Ref 0 01/06/17 Lisinopril 40 Mg TabUnknown Dose PO HS Ref 0 11/07/16 Docusate Sodium (Colace)100 Mg [id number] Mg PO TID PRN (Constipation) Ref 0 11/07/16 Aspirin 81 Mg Tabdr81 Mg PO HS 11/07/16 Allopurinol 300 Mg [id number] Mg PO HS PRN (Gout) Ref 0 11/07/16 Discontinued Reported Medications Insulin Glargine Inj (Lantus Inj)1,000 Unit/10 Ml [id number] Units SQ DAILY Ref 0 sliding scale 11/07/[address] 500 Mg Tabdr1,000 Mg PO BID Ref 0 11/07/16 Quetiapine (Seroquel)100 Mg [id number] Mg PO HS Ref 0 11/07/16 Mirtazapine 30 Mg Tab30 Mg PO HS Ref 0 11/07/16 Discontinued Scripts Ivermectin 3 Mg Tab6 Tab PO DAILY #2 Ref 0 Prov:Eusebia Jenkins 01/02/17 Current Medications Medications (Trade) Dose Ordered Sig/Christo Route Start Time Stop Time Status Last Admin (NS 1000 ml Inj) 1,000 ml @ 100 mls/hr Q10H IV 01/06/17 09:45 01/06/17 09:48 (Benadryl) 50 mg Q6H PRN PO 01/06/17 18:45 01/06/17 21:15 (Tylenol) 650 mg Q4H PRN PO 01/06/17 18:45 (Milk Of Magnesia Liq) 30 ml DAILY PRN PO 01/06/17 18:45 (Mag-Al Plus Susp Liq) 30 ml Q6H PRN PO 01/06/17 18:45 (Ecotrin Ec) 81 mg HS PO 01/06/17 21:00 01/06/17 21:15 (Remeron) 30 mg HS PO 01/06/17 21:00 01/06/17 21:15 (SEROquel) 50 mg HS PO 01/06/17 21:00 01/06/17 21:15 (Catapres) 0.1 mg Q12H PO 01/06/17 22:00 01/07/17 09:27 Family History Patient reports that his mother suffered of depression and committed suicide when he was 11 year old Social History Patient was born and raised in [place], he has been living alone in [place] for the last 4 years, he is a retired middle school special education teacher, he is , no kids, from the [place], highest level of education is a master degree. Physical Exam Vital Signs Vital Signs Date Time Temp Pulse Resp B/P Pulse Ox O2 Delivery O2 Flow Rate FiO2 01/07/17 10:31 96 18 125/78 01/07/17 06:42 97.9 98 01/06/17 21:44 Room Air I/O 01/06/17 01/06/17 01/07/17 08:00 16:00 00:00 Output Total 175 ml Balance -175 ml Lab Results Last reviewed Mental Status Examination Appearance man, [facility], age appearing, superficially cooperative, calm Speech: Unremarkable Orientation: x3 Memory: Unremarkable Thought Process: Logical Thought Content: Unremarkable Hallucination Type: None Suicidal Ideation: No Previous Suicide Attempts: Yes Homicidal Ideation: No Previous Homicide Attempts: No Judgement: WNL Affect: Sad Mood: Sad Motor Activity: Normal gait Assessment & Plan Problem List: (1) Depression Assessment & Plan: he patient is a 76-year-old man, domiciled alone in [place], divorce, , retired, with psychiatric history of depression, bipolar disorder, previous psychiatric hospitalizations, his last hospitalization was here at [place] in 2014 after an overdose of Depakote, EMR reviewed, previous suicidal attempts, he is connected to the [place] psychiatric service, not in medication at this moment, medical history of diabetes mellitus , who came to the ER complaining of dizziness, nausea and vomiting, but also reported feeling suicidal. Patient also has self-inflicted some superficial lacerations in his left wrist with releasing stress intentions. On psychiatric evaluation patient reports 1 week of depressive symptom in the context of acute stressors mentioned above, he reports low appetite, decreased energy, frequent suicidal thoughts, anhedonia, hopelessness, helplessness, weight loss. Patient seems to be fragile and vulnerable, isolated in his room, visibly depressed. At the moment of this evaluation patient denies suicidal or homicidal ideation, he denies visual and auditory hallucinations, but he is open to psychotherapy in psychotropics. Patient needs psychiatric hospitalization for stabilization and safety, elevated risk of suicidality is identified. Continue Seroquel 50 mg and Remeron 30 mg to help with depression and insomnia. field ironworker intervention for psychosocial assessment, psychotherapy, collateral information. Brief supportive psychotherapy provided. We will consult psychiatry for second opinion. ICD Code: F32.9 Assessment & Plan Estimated LOS: days Problem Qualifiers (1) Depression: Jorge Ford MD Jan 07, 2017 13:08
[2017-01-07] MEDS: diphenhydrAMINE HCL 50 MG CAP PO PRN ×2 (14:52→21:36)
[2017-01-07 18:00] VITALS: BP 135/73; PULSE 100; RESP 17; TEMP 98.2; O2SAT 98
[2017-01-07] MEDS: ASPIRIN EC 81 MG TABEC PO SCH (21:35)
[2017-01-07] MEDS: MIRTAZAPINE 15 MG TAB PO SCH (21:36)
[2017-01-07] MEDS: QUEtiapine FUMARATE 25 MG TAB PO SCH (21:36)
[2017-01-08] MEDS: SODIUM CHLOR 0.9% 1000 ML INJ 1,000 ML IV SCH ×2 (01:45→10:16)
[2017-01-08 06:42] VITALS: BP 132/84; PULSE 88; RESP 18; TEMP 97.6; O2SAT 96
[2017-01-08 09:56] LABS: HEMOGLOBIN A1a 1.5 %; HEMOGLOBIN A1b 1.4 %; HEMOGLOBIN Ao 72.9 %; HEMOGLOBIN F 2.4 %; HEMOGLOBIN LA1C 3.1 %; HEMOGLOBIN P3 4.7 %
[2017-01-08] MEDS: cloNIDine HCL 0.1 MG TAB PO SCH ×2 (10:00→22:00)
--- NOTE | 2017-01-08 13:29 | HHI.PYPN ---
Subjective Remarks There is a second opinion for Dr. Ford. Patient was seen, and case discussed with nursing. Patient describes months of depressed mood and feeling hopeless. He admits to suicide attempt and shows me his cuts. Mood is slightly improved today patient continues to feel hopeless for the future. He is looking forward to seeing his cat. He denies suicidal or homicidal thoughts , ideation, intent or plan. He does believe that medication can help. Patient regrets his suicide attempt describes a will to live. Complaining of itching secondary to scabies. It was also discovered today the patient is diabetic and not getting treatment. Objective Alert: Yes [place]: Person (ox4), Place Mood: Depressed Affect: Blunted Memory Intact: Comment (no gross abnormality) Hallucinations: Other (negative) Delusions: No Delusion Type: Other (denies) Suicidal: Ideation (denies today) Homicidal: Ideation (denies) Insight/Judgement Poor Vitals/IOs Vital Signs Date Time Temp Pulse Resp B/P Pulse Ox O2 Delivery O2 Flow Rate FiO2 01/08/17 06:42 97.6 88 18 132/84 96 01/06/17 21:44 Room Air Intake and Output 01/07/17 01/07/17 01/08/17 08:00 16:00 00:00 Intake Total 360 ml 240 ml 960 ml Balance 360 ml 240 ml 960 ml Assessment & Plan Problem List: (1) Depression ICD Code: F32.9 Assessment & Plan There is a pending medical consult for scabies, nursing will make them aware of need for diabetes management. Blood sugar was checked and was 360 and patient was placed on sliding scale insulin. Continue psychiatric medication at current dosing. I agree with the first opinion to continue petition. Criteria include suicidal attempt Justification for Cont. Inpt. Patient will decompensate in a less restrictive setting Problem Qualifiers (1) Depression: Mack Smith DO Jan 08, 2017 13:29
[2017-01-08] MEDS ORDERED: DEXTROSE 50% IN WATER 50 ML VIAL(D50) IV PUSH PRN (14:00)
[2017-01-08] MEDS ORDERED: PERMETHRIN 5% CREAM 60 GM TOPICAL ONE (14:00)
[2017-01-08] MEDS ORDERED: GLUCAGON 1 MG/ML VIAL OTHER PRN (14:00)
--- NOTE | 2017-01-08 14:10 | PD.CONS ---
HPI Service [facility] Hospitalists Consult Requested By Dr. Ford Reason for Consult Medical management Primary Care Physician Kemal Pope M.D. Diagnoses: History of Present Illness This a 76-year-old male with past medical history of hypertension, diabetes, depression, bipolar disorder. Patient initially presented to the emergency room on 01/06/2017 complaining of dizziness, nausea vomiting and feeling suicidal. Patient has prior history of Gonsalves act, due to overdose. Endorsed that he try to kill himself by cutting his left wrist and left arm with a razor blade. Patient verbalized feeling stressed out due to recent financial problems with his ex-. He has very limited social support. Indicates that he took several tabs of Tylenol PM. Additionally, he was recently diagnosed with scabies and fell very ashamed. Was treated by bending press operator but was not able to reach his back to apply the cream and has continued to have itching and more lesions. He was seen in the emergency room on January 02, 2017 and at that time he was prescribed ivermectin tabs. Patient has been evaluated by psychiatry and consented for voluntary admission. He is currently under their care. Hospitalist services are requested for medical management, is noted with uncontrolled blood glucose, has hemoglobin A1c 13.8. He is complaining of thirst. He continues to complain of itching, and has scaly lesions to hips and back. Patient is examined in the presence of the nurse. Indicates he is feeling dizzy, especially when he looks up. He believes it is vertigo. No headaches, denies any fall. No chest pain or shortness of breath. Indicates he hasn't had a BM in a couple of days and is requesting a stool softener. Blood pressure was initially elevated in the emergency room 200/100 and has now stabilized. He was taking lisinopril at home but does not recall dosage. Clonidine has been ordered but the patient has refused. He agrees to lisinopril if ordered. (Karen Mojica) Review of Systems Constitutional: COMPLAINS OF: Dizziness, DENIES: Diaphoretic episodes, Fatigue , Fever, Weight gain, Weight loss, Chills, Change in appetite, Night Sweats Endocrine: DENIES: Heat/cold intolerance, Polydipsia, Polyuria, Polyphagia Eyes: DENIES: Blurred vision, Diplopia, Eye inflammation, Eye pain, Vision loss , Photosensitivity, Double Vision Ears, nose, mouth, throat: DENIES: Tinnitus, Hearing loss, Vertigo, Nasal discharge, Oral lesions, Throat pain, Hoarseness, Ear Pain, Running Nose, Epistaxis, Sinus Pain, Toothache, Odynophagia Respiratory: DENIES: Apneas, Cough, Snoring, Wheezing, Hemoptysis, Sputum production, Shortness of breath Cardiovascular: DENIES: Chest pain, Palpitations, Syncope, Dyspnea on Exertion , PND, Lower Extremity Edema, Orthopnea, Claudication Gastrointestinal: COMPLAINS OF: Constipation, DENIES: Abdominal pain, Black stools, Bloody stools, Diarrhea, Nausea, Vomiting, Difficulty Swallowing, Anorexia Genitourinary: DENIES: Sexual dysfunction, Urinary frequency, Urinary incontinence, Urgency, Hematuria, Dysuria, Nocturia, Penile Discharge, Testicular Pain, Testicular Swelling Musculoskeletal: DENIES: Joint pain, Muscle aches, Stiffness, Joint Swelling, Back pain, Neck pain Integumentary: COMPLAINS OF: Pruritus, Rash, DENIES: Abnormal pigmentation, Nail changes Hematologic/lymphatic: DENIES: Bruising, Lymphadenopathy Immunologic/allergic: DENIES: Eczema, Urticaria Neurologic: DENIES: Abnormal gait, Headache, Localized weakness, Paresthesias, Seizures, Speech Problems, Tremor, Poor Balance Psychiatric: COMPLAINS OF: Depression, Suicidal Ideation, DENIES: Anxiety, Confusion, Mood changes, Hallucinations, Agitation, Homicidal Ideation, Delusions (Karen Mojica) Past Family Social History Past Medical History - Depression - History of bipolar - HTN - DM 2 -Recently treated for scabies Has been Gonsalves acted in the past, suicidal -Peripheral neuropathy Past Surgical History - Bowel resection secondary to diverticulitis - Appendectomy - Tonsillectomy Reported Medications Reported Meds & Active Scripts Active Depakote DR (Divalproex Sodium) 500 Mg Tabdr 1,000 Mg PO BID 14 Days Quetiapine (Quetiapine Fumarate) 50 Mg Tab 50 Mg PO HS 14 Days Mirtazapine 30 Mg Tab 30 Mg PO HS 14 Days Reported Doxycycline (Doxycycline (Monohydrate)) 100 Mg Cap 100 Mg PO BID Permethrin Topical (Permethrin) 5% Cream 1 Applic TOPICAL ONCE Lantus Solostar Pen Inj (Insulin Glargine) 300 Unit/3 Ml Pen 25-30 Units SQ DAILY Lisinopril 40 Mg Tab Unknown Dose PO HS Colace (Docusate Sodium) 100 Mg Cap 100 Mg PO TID PRN Aspirin 81 Mg Tabdr 81 Mg PO HS Allopurinol 300 Mg Tab 150 Mg PO HS PRN (Karen Mojica) Allergies: Coded Allergies: Oxycodone (Verified Allergy, Severe, Nausea/Vomiting, 01/02/17) Codeine (Verified Allergy, Unknown, 01/02/17) Active Ordered Medications Inpatient Medications Acetaminophen (Tylenol) 650 mg Q4H PRN PO Pain 1-5 or Temp >101F; Start at 18:45 Al Hydrox/Mg Hydrox/Simethicone (Mag-Al Plus Susp Liq) 30 ml Q6H PRN PO DYSPEPSIA; Start 01/06/17 at 18:45 Aspirin (Ecotrin Ec) 81 mg HS PO Last administered on 01/07/17 21:35; Start at 21:00 Clonidine (Catapres) 0.1 mg Q12H PO Last administered on 01/07/17 21:46; Start 01/06/17 at 22:00 Dextrose (D50w (Vial) Inj) 25 ml UNSCH PRN IV PUSH HYPOGLYCEMIA-SEE COMMENTS; Start 01/08/17 at 14:00 Diphenhydramine HCl (Benadryl) 50 mg Q6H PRN PO For mild anxiety and/or EPS Last administered on 01/07/17 21:36; Start 01/06/17 at 18:45 Glucagon (Glucagon Inj) 1 mg UNSCH PRN OTHER HYPOGLYCEMIA-SEE COMMENTS; Start 01/08/17 at 14:00 Hydralazine HCl (Apresoline Inj) 10 mg ONCE ONCE IV PUSH Last administered on 01/06/17 12:29; Start 01/06/17 at 12:00; Stop 01/06/17 at 12:01; Status DC Insulin Aspart (NovoLOG SUPPLEMENTAL SCALE) 1 ACHS SLIDING SCALE SQ ; Start at 16:00 Insulin Detemir (Levemir Inj) 20 units HS SQ ; Start 01/08/17 at 21:00 Insulin Human Regular (NovoLIN R INJ) 5 units ONCE ONCE SQ Last administered on 01/06/17 11:49; Start 01/06/17 at 11:30; Stop 01/06/17 at 11:31; Status DC Magnesium Hydroxide (Milk Of Magntru Liq) 30 ml DAILY PRN PO CONSTIPATION; Start 01/06/17 at 18:45 Meclizine HCl (Antivert) 25 mg ONCE ONCE PO Last administered on 01/06/17 09: 47; Start 01/06/17 at 09:45; Stop 01/06/17 at 09:46; Status DC Mirtazapine (Remeron) 30 mg HS PO Last administered on 01/07/17 21:36; Start 01/06/17 at 21:00 Permethrin (Elimite 5% Cream) 1 applic ONCE ONCE TOPICAL ; Start 01/08/17 at 14 :00; Stop 01/08/17 at 14:01; Status DC Quetiapine Fumarate (SEROquel) 50 mg HS PO Last administered on 01/07/17 21:36 ; Start 01/06/17 at 21:00 Sodium Chloride (NS 1000 ml Inj) 1,000 ml @ 100 mls/hr Q10H IV Last administered on 01/06/17 09:48; Start 01/06/17 at 09:45; Stop 01/08/17 at 13:51 ; Status DC Family History Reviewed, non contributory Social History Pt. is , has no children. Used to reside at [facility] but went back to live on his own. Has no social support, no friends. Has a cat. No smoking, no substance abuse, no ETOH. Pt. is a retired nurse school. (Karen Mojica) Physical Exam Vital Signs Vital Signs Date Time Temp Pulse Resp B/P Pulse Ox O2 Delivery O2 Flow Rate FiO2 01/08/17 06:42 97.6 88 18 132/84 96 01/07/17 18:00 98.2 100 17 135/73 98 Physical Exam GENERAL: This is a well-nourished, well-developed patient, in no apparent distress. SKIN: Diffuse papular rash to arms, trunk, hips. Some lesions are crusted. Linear lacerations 3 noted to left inner wrist. No erythema, no exudate. HEAD: Atraumatic. Normocephalic. No temporal or scalp tenderness. EYES: Pupils equal round and reactive. Extraocular motions intact. No scleral icterus. No injection or drainage. ENT: Nose without bleeding, purulent drainage or septal hematoma. Throat without erythema, tonsillar hypertrophy or exudate. Uvula midline. Airway patent. NECK: Trachea midline. No JVD or lymphadenopathy. Supple, nontender, no meningeal signs. CARDIOVASCULAR: Regular rate and rhythm without murmurs, gallops, or rubs. RESPIRATORY: Clear to auscultation. Breath sounds equal bilaterally. No wheezes , rales, or rhonchi. GASTROINTESTINAL: Abdomen soft, non-tender, nondistended. No hepato-splenomegaly , or palpable masses. No guarding. MUSCULOSKELETAL: Extremities without clubbing, cyanosis, or edema. No joint tenderness, effusion, or edema noted. No calf tenderness. Negative Homans sign bilaterally. NEUROLOGICAL: Awake, alert oriented 3. Follows commands appropriately. No focal deficit. (Karen Mojica) Result Diagram: 01/06/1742 01/07/17650 Imaging Last Impressions Head CT 01/06/17936 Signed Impressions: Service Date/Time: Friday, January 06, 2017 10:51 - CONCLUSION: Atrophy otherwise negative. Emmett Salas MD FACR Chest X-Ray 01/06/17936 Signed Impressions: Service Date/Time: Friday, January 06, 2017 09:36 - CONCLUSION: No acute disease. No significant change has occurred. Abdirizak Troncoso MD (Karen Mojica) A/P Diagnosis: (1) Crusted scabies (2) Hyperglycemia (3) Acute onset of severe vertigo (4) Bipolar disorder (5) Depression (6) HTN (hypertension) (7) Diabetes mellitus (8) Suicide by drug overdose (9) Self-inflicted laceration of wrist Assessment and Plan Thank you for this consultation, we will assist with medical management 76-year-old male with history of diabetes, depression, bipolar disorder. Admitted with suicidal ideation and self inflicted wounds to the left wrist, endorses taking Tylenol PM. -Continue with psychiatric care Continue with medications as prescribed per psychiatrist Recurrent scabies, was treated with permethrin by his bending press operator and most recently was given ivermectin tabs. -We will give 1 more treatment of permethrin, will monitor lesions for any infection Benadryl as needed for itching Vertigo, appears to be positional vertigo. We will order Antivert 25 mg by mouth every 8 when necessary for dizziness -Patient to continue using a walker for ambulation and instructed to get out of bed only with assistance -We will check LFTs Orthostatics 1 Insulin-dependent diabetes, poorly controlled hemoglobin A1c 13.8. Complaining of thirst. -We will order Accu-Cheks before meals and at bedtime with insulin therapy as needed -Add Levemir 20 units subcutaneous daily at bedtime -Start Metformin 500 mg by mouth twice a day -Continue with diabetic diet, diabetic snack to be offered at night Hypertension, initially uncontrolled now is stable Start lisinopril 5 mg by mouth daily Continue with clonidine Home medications reviewed, initiated as indicated Plan of care has been discussed with the patient, attending and registered nurse. Further management of the patient will be dependent on the hospital course This patient was seen by myself and Dr. Cabral, this consultation is written on her behalf (Karen Mojica) Assessment and Plan THis is late entry patient seen and examined on 01/08 agree with above assessment and plan discussed with patient discussed with Karen NAVAS (Jennifer Cabral MD) Problem Qualifiers (1) Bipolar disorder: Qualified Code: F31.4 - Bipolar disorder, current episode depressed, severe, without psychotic features (2) Depression: (3) HTN (hypertension): Qualified Code: I10 - Essential hypertension (4) Diabetes mellitus: Qualified Code: E11.65 - Type 2 diabetes mellitus with hyperglycemia, unspecified halfway insulin use status (5) Suicide by drug overdose: Qualified Code: T50.902A - Suicide by drug overdose, initial encounter (6) Self-inflicted laceration of wrist: Qualified Code: S61.512A - Self-inflicted laceration of wrist, left, initial encounter Karen Mojica Jan 08, 2017 14:10 Jennifer Cabral MD Jan 09, 2017 12:44
[2017-01-08] MEDS ORDERED: INSULIN ASPART 1,000 UNITS/10 ML VIAL SQ ONE (14:30)
[2017-01-08] MEDS ORDERED: MECLIZINE HCL 25 MG TAB PO PRN (15:00)
[2017-01-08] MEDS: INSULIN ASPART SUPPLEMENTAL SCALE SQ SCH ×2 (16:14→21:00)
[2017-01-08 16:42] VITALS: PULSE 86; RESP 18; TEMP 97.7; O2SAT 80
[2017-01-08] MEDS: metFORMIN HCL 500 MG TAB PO SCH (18:11)
[2017-01-08] MEDS: DOCUSATE SODIUM 100 MG CAP PO SCH (21:00)
[2017-01-08] MEDS: INSULIN DETEMIR 100 UNITS/ML VIAL SQ SCH (21:00)
[2017-01-08] MEDS: ASPIRIN EC 81 MG TABEC PO SCH (21:00)
[2017-01-08] MEDS: MIRTAZAPINE 15 MG TAB PO SCH (21:00)
[2017-01-08] MEDS: QUEtiapine FUMARATE 25 MG TAB PO SCH (21:00)
[2017-01-08] MEDS: diphenhydrAMINE HCL 50 MG CAP PO PRN (21:45)
[2017-01-09 06:02] VITALS: BP 155/74; PULSE 76; RESP 18; TEMP 97.5; O2SAT 98
[2017-01-09] MEDS: INSULIN ASPART SUPPLEMENTAL SCALE SQ SCH ×4 (07:00→21:54)
[2017-01-09] MEDS: metFORMIN HCL 500 MG TAB PO SCH ×2 (09:00→17:22)
[2017-01-09] MEDS: DOCUSATE SODIUM 100 MG CAP PO SCH ×3 (09:00→21:34)
[2017-01-09] MEDS ORDERED: LISINOPRIL 5 MG TAB PO SCH (09:00)
--- NOTE | 2017-01-09 09:39 | HHI.PR ---
Subjective Remarks somnolent, had sleeping pill last night some pruritus had Elimite tx last night blood sugars 200s, yesterday one bgm was >400 no cp no sob flat, depressed affect dizziness with head movement Objective Objective Results - Vital Signs Date Time Temp Pulse Resp B/P Pulse Ox O2 Delivery O2 Flow Rate FiO2 01/09/17 06:02 97.5 76 18 155/74 98 01/08/17 16:42 97.7 86 18 80 I/O 01/08/17 01/08/17 01/08/17 01/09/17 01/09/17 01/09/17 07:00 15:00 23:00 07:00 15:00 23:00 Intake Total 0 ml 1920 ml Balance 0 ml 1920 ml Intake Oral 0 ml 1920 ml # Voids 2 6 0 # Bowel Movements 0 0 Result Diagram: 01/06/1742 01/07/17 0651 Imaging Last Impressions Head CT 01/06/17936 Signed Impressions: Service Date/Time: Friday, January 06, 2017 10:51 - CONCLUSION: Atrophy otherwise negative. Emmett Salas MD FACR Chest X-Ray 01/06/17936 Signed Impressions: Service Date/Time: Friday, January 06, 2017 09:36 - CONCLUSION: No acute disease. No significant change has occurred. Abdirizak Troncoso MD ROS General: Other (12 point ROS completed, neg. except as noted above, unreliable ) HEENT: No: Sore Throat, Dysphagia Cardiac: No: Chest Pain, Edema, Palpitations Pulmonary: No: Cough, SOB, Wheezing GI: No: Abdominal Pain, BM, Diarrhea, N/V /[employer] ASSEM[employer]ER: No: Dysuria, Urgency Neuro/MS: No: Lightheaded, Confusion Psych: No: Anxiety, Depression Skin: No: Itching, Rash Physical Exam Physical Exam GENERAL: This is a well-nourished, well-developed patient, in no apparent distress. SKIN: Diffuse papular rash to arms, trunk, hips. Some lesions are crusted. Linear lacerations 3 noted to left inner wrist. No erythema, no exudate. HEAD: Atraumatic. Normocephalic. No temporal or scalp tenderness. EYES: Pupils equal round and reactive. Extraocular motions intact. No scleral icterus. No injection or drainage. ENT: Nose without bleeding, purulent drainage or septal hematoma. Throat without erythema, tonsillar hypertrophy or exudate. Uvula midline. Airway patent. NECK: Trachea midline. No JVD or lymphadenopathy. Supple, nontender, no meningeal signs. CARDIOVASCULAR: Regular rate and rhythm without murmurs, gallops, or rubs. RESPIRATORY: Clear to auscultation. Breath sounds equal bilaterally. No wheezes , rales, or rhonchi. GASTROINTESTINAL: Abdomen soft, non-tender, nondistended. No hepato-splenomegaly , or palpable masses. No guarding. MUSCULOSKELETAL: Extremities without clubbing, cyanosis, or edema. No joint tenderness, effusion, or edema noted. No calf tenderness. Negative Homans sign bilaterally. NEUROLOGICAL: Awakes to voice, alert oriented 3. Follows commands appropriately. No focal deficit.Flat, depressed affect. Urinary Catheter: No Vascular Central Line Catheter: No A/P Diagnosis: (1) Crusted scabies (2) Hyperglycemia (3) Acute onset of severe vertigo (4) Bipolar disorder (5) Depression (6) HTN (hypertension) (7) Diabetes mellitus (8) Suicide by drug overdose (9) Self-inflicted laceration of wrist Assessment and Plan 76-year-old male with history of diabetes, depression, bipolar disorder. Admitted with suicidal ideation and self inflicted wounds to the left wrist, endorses taking Tylenol PM. -Continue with psychiatric care Continue with medications as prescribed per psychiatrist Recurrent scabies, was treated with permethrin by his air pollution auditor and most recently was given ivermectin tabs. -1 tx of permethrin 01/08, will monitor lesions for any infection Benadryl as needed for itching Vertigo, appears to be positional vertigo. Antivert 25 mg by mouth every 8 when necessary for dizziness -Patient to continue using a walker for ambulation and instructed to get out of bed only with assistance -We will check LFTs-pending Orthostatics 1-not done. Insulin-dependent diabetes, poorly controlled hemoglobin A1c 13.8. Complaining of thirst. - Accu-Cheks before meals and at bedtime with insulin therapy as needed -Levemir 20 units subcutaneous daily at bedtime -Continue Metformin 500 mg by mouth twice a day -Continue with diabetic diet, diabetic snack to be offered at night Hypertension, initially uncontrolled now is stable Continue lisinopril 5 mg by mouth daily Continue with clonidine Will f/u on LFTs and orthos D/W RN D/W Dr. Cabral D/W pt. This patient was seen by myself and Dr. Cabral, this note is written on her behalf Problem Qualifiers (1) Bipolar disorder: Qualified Code: F31.4 - Bipolar disorder, current episode depressed, severe, without psychotic features (2) Depression: (3) HTN (hypertension): Qualified Code: I10 - Essential hypertension (4) Diabetes mellitus: Qualified Code: E11.65 - Type 2 diabetes mellitus with hyperglycemia, unspecified continuous churn buttermaker insulin use status (5) Suicide by drug overdose: Qualified Code: T50.902A - Suicide by drug overdose, initial encounter (6) Self-inflicted laceration of wrist: Qualified Code: S61.512A - Self-inflicted laceration of wrist, left, initial encounter Karen Mojica Jan 09, 2017 09:39
[2017-01-09] MEDS: cloNIDine HCL 0.1 MG TAB PO SCH (10:00)
[2017-01-09 11:49] VITALS: BP_SYST 103; BP_SYST 165; BP_SYST 177; BP_DIAS 72; BP_DIAS 78; BP_DIAS 81; PULSE 80
[2017-01-09 12:06] LABS: INDIRECT BILIRUBIN 0.3 MG/DL (0.0-0.8); TOTAL BILIRUBIN ADULT 0.4 MG/DL (0.2-1.0)
[2017-01-09] MEDS ORDERED: CALAMINE LOTION 180 APPLIC/180 ML BTL TOPICAL PRN (14:00)
[2017-01-09] MEDS ORDERED: PILL SPLITTER OTHER PRN (14:15)
--- NOTE | 2017-01-09 16:03 | HHI.PYPN ---
Subjective Remarks Patient discussed with treatment team and medical student Keerthi, patient seen in room. Patient describes as suicidality or suicide attempts. Though concern about his cat that is somewhat alone. However he still acknowledges suicidal ideation with the possibility of taking the suicide pill if offered. Patient compliant medications. For now continue treatment Review of Systems Except as stated in HPI: all other systems reviewed are Neg Objective Alert: Yes [place]: Person (ox4), Place Mood: Depressed Affect: Blunted Memory Intact: Comment (no gross abnormality) Hallucinations: Other (negative) Delusions: No Delusion Type: Other (denies) Suicidal: Ideation (denies today) Homicidal: Ideation (denies) Insight/Judgement Very poor Labs Test 01/09/17 11:17 Total Bilirubin 0.4 MG/DL Direct Bilirubin 0.1 MG/DL Indirect Bilirubin 0.3 MG/DL Aspartate Amino Transf 16 U/L (AST/SGOT) Alanine Aminotransferase 30 U/L (ALT/SGPT) Alkaline Phosphatase 85 U/L Total Protein 6.3 GM/DL Albumin 2.8 GM/DL Vitals/IOs Vital Signs Date Time Temp Pulse Resp B/P Pulse Ox O2 Delivery O2 Flow Rate FiO2 01/09/17 11:49 80 103/81 165/72 177/78 01/09/17 06:02 97.5 18 98 01/06/17 21:44 Room Air Intake and Output 01/08/17 01/08/17 01/09/17 08:00 16:00 00:00 Intake Total 0 ml 1920 ml Balance 0 ml 1920 ml Assessment & Plan Problem List: (1) Depression ICD Code: F32.9 Assessment & Plan Estimated LOS: days patient remains depressed suicidal, compliant medications Justification for Cont. Inpt. At this time patient will decompensate placed in a lower level of care Discharge Planning To be determined Problem Qualifiers (1) Depression: Qualified Code: F33.1 - Moderate episode of recurrent major depressive disorder Vimal Hadley MD Jan 09, 2017 16:02
[2017-01-09] MEDS ORDERED: BISACODYL 10 MG SUPP RECTAL PRN (19:00)
[2017-01-09 19:12] VITALS: BP 170/83; PULSE 107; RESP 18; TEMP 97.8; O2SAT 96
[2017-01-09] MEDS: MIRTAZAPINE 15 MG TAB PO SCH (21:34)
[2017-01-09] MEDS: ASPIRIN EC 81 MG TABEC PO SCH (21:34)
[2017-01-09] MEDS: QUEtiapine FUMARATE 25 MG TAB PO SCH (21:34)
[2017-01-09] MEDS: INSULIN DETEMIR 100 UNITS/ML VIAL SQ SCH (21:35)
[2017-01-10 06:40] VITALS: BP 154/89; PULSE 52; RESP 16; TEMP 98.1; O2SAT 97
[2017-01-10] MEDS: INSULIN ASPART SUPPLEMENTAL SCALE SQ SCH ×4 (06:41→21:41)
[2017-01-10] MEDS: DOCUSATE SODIUM 100 MG CAP PO SCH ×2 (09:00→21:00)
[2017-01-10] MEDS: metFORMIN HCL 500 MG TAB PO SCH ×2 (10:43→17:53)
[2017-01-10] MEDS: LISINOPRIL 5 MG TAB PO SCH (10:44)
--- NOTE | 2017-01-10 14:09 | HHI.PYPN ---
Subjective Remarks Patient seen in his room. Continues to cooperate with the isolation secondary to scabies. They states remains static concerned about the condition of his pet cat who is been alone and is apartment for a number of days. Will have counselor call patient's management company who has a [employer] apartment see if they can assist with eating that animal. Otherwise patient is vague about continued suicidality continues sad and somewhat anhedonic. For now continue treatment Review of Systems Except as stated in HPI: all other systems reviewed are Neg Objective Alert: Yes [place]: Person (ox4), Place Mood: Depressed Affect: Blunted Memory Intact: Comment (no gross abnormality) Hallucinations: Other (negative) Delusions: No Delusion Type: Other (denies) Suicidal: Ideation (denies today) Homicidal: Ideation (denies) Insight/Judgement Poor Labs Test 01/10/17 07:16 Thyroid Stimulating Hormone 1.250 uIU/ML 3rd Gen Random Cortisol 12.9 MCG/DL Vitals/IOs Vital Signs Date Time Temp Pulse Resp B/P Pulse Ox O2 Delivery O2 Flow Rate FiO2 01/10/17 06:40 98.1 52 16 154/89 97 01/06/17 21:44 Room Air Intake and Output 01/09/17 01/09/17 01/10/17 08:00 16:00 00:00 Intake Total 1680 ml Balance 1680 ml Assessment & Plan Problem List: (1) Depression ICD Code: F32.9 Assessment & Plan Estimated LOS: days she continues depressed and anhedonic vague suicidal ideation. For now continue treatment Justification for Cont. Inpt. At this time the patient will decompensate the placed in a lower level of care Discharge Planning To be determined Problem Qualifiers (1) Depression: Qualified Code: F33.1 - Moderate episode of recurrent major depressive disorder Vimal Hadley MD Jan 10, 2017 14:09
--- NOTE | 2017-01-10 15:58 | HHI.PR ---
Subjective Remarks Alert, responsive Resting in bed Pruritus with special attention to back Scabies treatment No chest pain, no shortness of breath States appetite good No complaints of vertigo Objective Objective Results - Vital Signs Date Time Temp Pulse Resp B/P Pulse Ox O2 Delivery O2 Flow Rate FiO2 01/10/17 06:40 98.1 52 16 154/89 97 01/09/17 19:12 97.8 107 18 170/83 96 I/O 01/09/17 01/09/17 01/09/17 01/10/17 01/10/17 01/10/17 07:00 15:00 23:00 07:00 15:00 23:00 Intake Total 1680 ml 240 ml Output Total 250 ml Balance 1680 ml -10 ml Intake Oral 1680 ml 240 ml Output Urine Total 250 ml # Voids 0 3 # Bowel Movements 0 4 Result Diagram: 01/06/17 0942 01/07/17 0651 ROS General: Other (8 point review done positives noted are scabies with pruritus predominantly on back. Other systems negative or unremarkable) Skin: Rash (scabies treatment already initiated, positive for itching) Physical Exam Physical Exam PHYSICAL EXAMINATION GENERAL: This is a well-developed, well-nourished male who appears to be in no acute distress. He is alert and awake, responsive to verbal stimuli HEAD: Normocephalic without any lesion or mass noted. Facial features appear symmetric. OROPHARYNGEAL: Oropharynx without erythema or edema. NECK: Supple. No nuchal rigidity or lymphadenopathy. Trachea midline without deviation. CARDIAC: Regular rhythm, regular rate, S1 and S2 LUNGS: Clear to auscultation bilaterally. [place], no rhonchi No use of accessory muscles on inspiration or expiration. ABDOMEN: Soft, nontender, no organomegaly or masses. Bowel sounds are heard in all four quadrants. No rebound. No guarding. EXTREMITIES: No edema. Pulses equal bilateral. NEUROLOGICAL: Patient mood and affect appropriate at this time SKIN:Warm and moist, small red crusted pinpoint rash noted predominantly on back and trunk. Itching on back Objective Remarks Continue please get me something for this itching A/P Assessment and Plan Diagnosis: (1) Crusted scabies (2) Hyperglycemia (3) Acute onset of severe vertigo (4) Bipolar disorder (5) Depression (6) HTN (hypertension) (7) Diabetes mellitus (8) Suicide by drug overdose (9) Self-inflicted laceration of wrist Assessment and Plan 76-year-old male with history of diabetes, depression, bipolar disorder. Admitted with suicidal ideation and self inflicted wounds to the left wrist, endorses taking Tylenol PM. -Continue with psychiatric care Continue with medications as prescribed per psychiatrist Hospitalist consult for medical management continues as needed Recurrent scabies, was treated with permethrin by his private branch exchange service adviser and most recently was given ivermectin tabs. -1 tx of permethrin 01/08, will monitor lesions for any infection Benadryl as needed for itching Added Caladryl every 12 hours for itching Vertigo, appears to be positional vertigo. Antivert 25 mg by mouth every 8 when necessary for dizziness -Patient to continue using a walker for ambulation and instructed to get out of bed only with assistance No complaints of vertigo today Insulin-dependent diabetes, poorly controlled hemoglobin A1c 13.8. Complaining of thirst. - Accu-Cheks before meals and at bedtime with insulin therapy as needed -Levemir 20 units subcutaneous daily at bedtime -Continue Metformin 500 mg by mouth twice a day -Continue with diabetic diet, diabetic snack to be offered at night Continue plan of care Hypertension, initially uncontrolled now is stable Continue lisinopril 5 mg by mouth daily Continue with clonidine Discussed case with Dr. Cabral. Patient seen on her behalf Discharge Planning Initiated, on admission Savannah Coronel Jan 10, 2017 15:58
[2017-01-10] MEDS ORDERED: CALAMINE LOTION 180 APPLIC/180 ML BTL TOPICAL PRN (16:45)
[2017-01-10 18:00] VITALS: BP 163/85; PULSE 66; RESP 18; TEMP 99.8; O2SAT 97
[2017-01-10] MEDS: INSULIN DETEMIR 100 UNITS/ML VIAL SQ SCH (21:41)
[2017-01-10] MEDS: QUEtiapine FUMARATE 25 MG TAB PO SCH (21:43)
[2017-01-10] MEDS: ASPIRIN EC 81 MG TABEC PO SCH (21:43)
[2017-01-10] MEDS: MIRTAZAPINE 15 MG TAB PO SCH (21:43)
[2017-01-10] MEDS: CALAMINE/PRAMOXINE LOTION 180 ML BTL TOPICAL SCH (22:16)
[2017-01-11] MEDS: INSULIN ASPART SUPPLEMENTAL SCALE SQ SCH ×3 (06:26→16:40)
[2017-01-11 06:32] VITALS: BP 143/78; PULSE 78; RESP 18; TEMP 98; O2SAT 97
[2017-01-11] MEDS: DOCUSATE SODIUM 100 MG CAP PO SCH (08:47)
[2017-01-11] MEDS: metFORMIN HCL 500 MG TAB PO SCH (08:48)
[2017-01-11] MEDS: LISINOPRIL 5 MG TAB PO SCH (08:48)
[2017-01-11] MEDS: CALAMINE/PRAMOXINE LOTION 180 ML BTL TOPICAL SCH (08:49)
[2017-01-11] MEDS ORDERED: QUET1TAB7 PO (12:40)
[2017-01-11] MEDS ORDERED: REME30TA PO (12:40)
[2017-01-11] MEDS ORDERED: LEVEMIR SQ (12:40)
[2017-01-11] MEDS ORDERED: LISI-519 PO (12:40)
[2017-01-11] MEDS ORDERED: PRAM1LOT4 TOPICAL (12:40)
[2017-01-11] MEDS ORDERED: METF500 PO (12:40)
[2017-01-11] MEDS ORDERED: ASPI81TA11 PO (12:40)
[2017-01-11] MEDS ORDERED: DOCU1CAP39 PO (12:40)
--- NOTE | 2017-01-11 12:48 | HHI.DS ---
Psychiatry Discharge Summary Inpatient Psychiatric care?: Yes Advance Directive: No Reason Not Provided: Due to Patient Condition Mental Health AdvanceDirective: No Health Care Proxy: No Admission Admission Date Jan 06, 2017 at 18:44 Admission Diagnosis: (1) Depression ICD Code: F32.9 Brief History as per ER. Miss Fay documentation on 01/06/2017: "76-year-old , , male with history of bipolar disorder who comes in to [facility] complaining of dizziness, nausea and vomiting. He also reported feeling suicidal. Patient reports that he has been feeling stressed and " too much on my plate lately. I went to the [facility] and the psychiatrist said I was depressed but did not change my medication".He reports he was dx with a rash last week and he has been unable to have his apartment fumigated so he is not able ot get the infestation under control. He calls it herpes but it is actually scabies and he has received treatment for this. He also reports feeling upset as his ex just got a new boyfriend and is demanding him pay her alimony. He moved out of an RETIREMENT 2 months ago and is being sued for $ 5,000 he owes them. He was unable to sleep last night due to newly onset of nausea and vomiting and attempted to kill himself by superficially cutting his wrists . He states " This is a cry for help. 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 I am [place] educated and I know that males usually use more lethal methods but I can't get a gun because I have been BA too many times before". Patient is also verbalizing feeling ashamed of having contracted scabies. Patient is alert, oriented male dressed in hospital attire. Speech is clear and logical. There is no hallucinations, delusions or paranoia. Mood is depressed with hopelessness, poor coping. He denies current suicidal ideation but in the same sentence talks about him being a " high risk due to many factors". He tells me he is worried over his cat but also states that he spread a 2 lb of food in his apartment before he left so that the cat could have some food.As per EMR review this patient was last hospitalized in April 2015 for depression. He had a total of 3 hospitalizations in 2014. His first psychiatric hospitalization was in 2013 and he was dx with bipolar disorder. One documented suicide attempt by overdosing on Depakote." 01/07/2017: The patient is a 76-year-old man, domiciled alone in [place], divorce, , retired, with psychiatric history of depression , bipolar disorder, previous psychiatric hospitalizations, his last hospitalization was here at [facility] in 2014 after an overdose of Depakote, EMR reviewed, previous suicidal attempts, he is connected to the [facility] service, not in medication at this moment, medical history of diabetes mellitus , who came to the ER complaining of dizziness, nausea and vomiting, but also reported feeling suicidal. Patient has visible superficial self inflicted lacerations in his left wrist done recently with the purpose of "release in my stress". On psychiatric evaluation today patient states that he has been very depressed in the last week since he went to his fretted instrument inspector that he was told he had scabies. He said that he felt extremely degraded and offended by this diagnosis, became very depressed "like my whole world was falling down and self inflicted this lacerations". He also explained that he has been in a court process because he sued his RETIREMENT and last week the court favored his RETIREMENT. After this patient has been feeling very depressed, with very low appetite, low energy , he hasn't been eating, he says that he has lost many pounds, and has been having frequently suicidal thoughts, but no plan or intention. At this moment the patient denies suicidal ideation, denies homicidal ideation, denies visual and auditory hallucinations. Patient is fully oriented 3, no fluctuation of consciousness, no attention deficit, no gross cognitive impairment observed. He does not present any paranoia, delusions, disorganized behaviors or thought during this evaluation. Patient denies the use of alcohol and illicit drugs. Tobacco Use In Past 30 Days: No Tobacco Past 30 Days Alcohol Use: Monthly or Less Hospital Course Patient showed cooperation with his medication from initial hospitalization though the suicidality and depression is slowly did resolve. He also coping well with his treatment for scabies the isolation live that demanded of him. Over the last few days she showed increased concern about the safety of his pet cat is apartment. Is resolved. Today patient seen by me in his room nurse Ivis states she feels much better on his cat is okay, denying suicidality homicidality voices or visions does wish to go home. He states he has bills to pay including a payment on a "new" Romy He'll follow up with the [facility] patient to be discharged today Rx 1 month of schedule medications Results Blood Pressure 143 / 78 Vital Signs Date Time Temp Pulse Resp B/P Pulse Ox O2 Delivery O2 Flow Rate FiO2 01/11/17 06:32 98.0 78 18 143/78 97 Laboratory Tests Test 01/09/17 11:17 Total Protein 6.3 GM/DL (6.4-8.2) Albumin 2.8 GM/DL (3.4-5.0) Laboratory Results Test 01/07/17 06:51 Hemoglobin A1c 13.8 % (4.3-6.0) Triglycerides Level 124 MG/DL (42-150) Cholesterol Level 266 MG/DL (120-200) LDL Cholesterol 171 MG/DL (0-99) HDL Cholesterol 69.9 MG/DL (40.0-60.0) Valproic Acid (Depakene) Level 4 MCG/ML (50-100) Summary of Procedures None done Imaging Last Impressions Head CT 01/06/17936 Signed Impressions: Service Date/Time: Friday, January 06, 2017 10:51 - CONCLUSION: Atrophy otherwise negative. Emmett Salas MD FACR Chest X-Ray 01/06/17936 Signed Impressions: Service Date/Time: Friday, January 06, 2017 09:36 - CONCLUSION: No acute disease. No significant change has occurred. Abdirizak Troncoso MD Pending results at discharge: No Medications # of Antipsychotic meds at D/C: 1 Approp Antipsych med options 1 - Minimum of three failed multiple trials of monotherapy. 2 - Documented plan to taper to monotherapy due to previous use of multiple meds OR cross-taper in progress at D/C. 3 - Documentation of augmentation of Clozapine. 4 - Justification other than those listed in allowable values 1-3, document here : Discharge Discharge Date: Jan 11, 2017 Discharge Diagnosis: (1) Depression Diagnosis: Principal ICD Code: F32.9 Mental Status Exam at Disch Alert oriented white male laying calmly as bed is normal active, mood is euthymic, affect showed good range intensity, speech rate and rhythm are within normal limits for no formal thought orders, no effusion hallucinations no delusions, insight and judgment is poor to fair, cognition grossly intact Pt Condition on Discharge: Stable Discharge Disposition: Discharge Home Discharge Instructions Diet Instructions: As Tolerated, No Restrictions Activities you can perform: Regular-No Restrictions Scheduled Appointment: follow-up [facility] outpatient clinic Discharge Time > 30 minutes Discharge/Advance Care Plan Health Problems: (1) Depression Goals to promote your health * To prevent worsening of your condition and complications * To maintain your health at the optimal level Directions to meet your goals Take your medications as prescribed Follow your dietary instruction Follow activity as directed Keep your appointments as scheduled Take your immunizations and boosters as scheduled If your symptoms worsen call your PCP, if no PCP go to Urgent Care Center or Emergency Room For 05/06 questions related to your inpatient stay or results of tests pending at discharge, please contact Dr. Vimal Hadley at Smoking is Dangerous to Your Health. 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
== END 2017-01-11 17:40 | disposition home or self-care (01) | DRG 881 ==
LOC: NEPA 09:15 → NEDA 18:44 → H250 01-07 00:50
PROVIDERS: ADMIT Psychiatry & Neurology Psychiatry; ATTEND Psychiatry & Neurology Psychiatry
DX: F32.9 Major depressive disorder, single episode, unspecified (principal); E11.65 Type 2 diabetes mellitus with hyperglycemia; G62.9 Polyneuropathy, unspecified; I10 Essential (primary) hypertension; B86 Scabies; Z79.82 Long term (current) use of aspirin; Z79.4 Long term (current) use of insulin; H81.10 Benign paroxysmal vertigo, unspecified ear
CPT/HCPCS: 70450; 71010; 80048; 80053; 80061; 80076; 80164; 80307; 80320; 81001; 82533; 82948; 83036; 84443; 85025; 85610; 85730; 93005; 96361; 96372; 96374; J0360; J1815; J7030; Q0163